=== PATIENT | male | born 1955 | race Caucasian/White ===

== ENCOUNTER 2021-09-18 09:15 | Inpatient (IN) | payer OTHER ==
[2021-09-18 10:06] LABS: #Monocytes 0.6 10x3/uL (0.0-1.1); #Neutrophils 7.9 10x3/uL (1.5-8.4); %Basophils 0.2 % (0.0-2.0); %Eosinophils 0.3 % (0.0-6.0); %Lymphocytes 10.6 % (18.0-47.0); %Monocytes 6.3 % (0.0-10.0); %Neutrophils 82.4 % (40.0-75.0); Hemoglobin 12.9 g/dL (13.5-17.5); Mean Corpuscular HGB CONC 32.5 g/dL (32.0-36.0); Mean Corpuscular Hemoglobin 32.8 pg (27.0-33.0); Mean Platelet Volume 10.7 fl (7.4-10.4); Platelet Count 191 10x3/uL (150-450); RBC Distribution Width 13.8 % (11.5-14.5); Red Blood Cell (RBC) Count 3.93 10x6/uL (4.32-5.72); White Blood Cell (WBC) Count 9.6 10x3/uL (3.5-10.5)
[2021-09-18] MEDS ORDERED: Morphine 4 MG/ML VIAL ONE ×2 (10:07→12:56)
[2021-09-18 10:22] LABS: ALT (SGPT) 12 U/L (8-55); AST (SGOT) 22 U/L (5-34); Albumin 4.6 g/dL (3.4-4.8); Alkaline Phosphatase 92 U/L (40-110); Anion Gap 14 mmol/L (10-20); BUN (Urea Nitrogen) 19 mg/dL (8.4-25.7); Bilirubin, Total 0.9 mg/dL (0.2-1.2); Calc. Creatinine Clearance 0 mL/min (70-130); Calcium 9.5 mg/dL (7.8-10.44); Carbon Dioxide 19 mmol/L (23-31); Chloride 110 mmol/L (98-107); Globulin 3.1 g/dL (2.4-3.5); Glucose 104 mg/dL (80-115); Potassium 5.1 mmol/L (3.5-5.1); Protein, Total 7.7 g/dL (5.8-8.1); Sodium 138 mmol/L (136-145)
[2021-09-18 10:40] LABS: CKMB 3.5 ng/mL (0-6.6)
[2021-09-18 11:50] LABS: SARS-CoV-2 NAA Rapid Test Not Detected (NotDetected)
[2021-09-18 16:29] LABS: Prothrombin Time Greater than 90.0 sec (9.5-12.1)
[2021-09-18 16:40] LABS: CKMB 3.4 ng/mL (0-6.6)
[2021-09-18] MEDS ORDERED: Warfarin Sodium 7.5 MG TAB PO SCH (17:00)
[2021-09-18 18:06] LABS: Prothrombin Time Greater than 90.0 sec (9.5-12.1)
[2021-09-18] MEDS: Morphine 4 MG/ML VIAL SLOW IVP PRN ×2 (18:36→22:01)
[2021-09-18] MEDS: Phytonadione 10 MG/ML AMP SC SCH ×2 (18:43→18:52)
[2021-09-18] MEDS: Nitroglycerin 0.4 MG TAB (25 Tab Bottle) SL PRN ×2 (21:40→21:47)
[2021-09-18] MEDS: Atorvastatin Calcium 40 MG TAB PO SCH (22:01)
[2021-09-18] MEDS ORDERED: Metoprolol Tartrate 5 MG/5 ML VIAL IVP SCH (22:15)
[2021-09-18] MEDS ORDERED: Metoprolol Tartrate 25 MG TAB PO SCH (22:45)
[2021-09-19] MEDS: Nitroglycerin 0.4 MG TAB (25 Tab Bottle) SL PRN ×3 (03:56→11:13)
[2021-09-19] MEDS: Ondansetron PF 4 MG/2 ML Vial IVP PRN ×2 (04:32→20:16)
[2021-09-19 04:54] LABS: #Eosinphils 0.1 10x3/uL (0.0-0.5); #Monocytes 0.6 10x3/uL (0.0-1.1); #Neutrophils 5.2 10x3/uL (1.5-8.4); %Basophils 0.3 % (0.0-2.0); %Eosinophils 1.4 % (0.0-6.0); %Lymphocytes 15.9 % (18.0-47.0); %Monocytes 8.5 % (0.0-10.0); %Neutrophils 73.3 % (40.0-75.0); Hemoglobin 11.1 g/dL (13.5-17.5); Mean Corpuscular HGB CONC 32.2 g/dL (32.0-36.0); Mean Corpuscular Hemoglobin 32.6 pg (27.0-33.0); Mean Corpuscular Volume 101.5 fl (81.2-95.1); Mean Platelet Volume 10.9 fl (7.4-10.4); Platelet Count 148 10x3/uL (150-450); White Blood Cell (WBC) Count 7.1 10x3/uL (3.5-10.5)
[2021-09-19 05:19] LABS: INR-International Normal Ratio 3.3; PTT 50.1 sec (22.0-33.0); Prothrombin Time 34.5 sec (9.5-12.1)
[2021-09-19 05:25] LABS: Anion Gap 15 mmol/L (10-20); BUN (Urea Nitrogen) 22 mg/dL (8.4-25.7); Calc. Creatinine Clearance 67 mL/min (70-130); Calcium 9.2 mg/dL (7.8-10.44); Carbon Dioxide 21 mmol/L (23-31); Cardiac Risk 3.1 (Less than 4.5); Chloride 108 mmol/L (98-107); Cholesterol 94 mg/dl (< 200 Desired); Glucose 103 mg/dL (80-115); HDL Cholesterol 30 mg/dL (>60 Neg Risk); LDL Cholesterol, Calculated 31 mg/dL; Magnesium 1.8 mg/dL (1.6-2.6); Potassium 4.5 mmol/L (3.5-5.1); Sodium 139 mmol/L (136-145); Triglycerides 163 mg/dL (Less than 150)
[2021-09-19] MEDS: Morphine 4 MG/ML VIAL SLOW IVP PRN ×3 (05:32→23:55)
[2021-09-19 05:38] LABS: CKMB 3.3 ng/mL (0-6.6)
[2021-09-19] MEDS: Aspirin 81 mg Enteric Coated Tablet PO SCH (08:30)
[2021-09-19] MEDS: Folic Acid 1 MG TAB PO SCH (08:30)
[2021-09-19] MEDS: Lisinopril 2.5 MG TAB PO SCH (08:30)
[2021-09-19] MEDS: Metoprolol Tartrate 25 MG TAB PO SCH ×2 (08:30→20:16)
[2021-09-19] MEDS ORDERED: Aspirin Chewable 81 MG TAB PO SCH (09:00)
[2021-09-19 12:21] LABS: Hemoglobin A1c 5.7 % (4.0-6.0)
[2021-09-19] MEDS ORDERED: Magnesium Sulfate 2 GM in Sodium Chloride 0.9% 100 ML IVPB SCH (14:00)
[2021-09-19] MEDS ORDERED: Magnesium 2 GM/50 ML(in water) 2 GM in Premix Bag 1 BAG IVPB SCH (16:00)
[2021-09-19] MEDS: Atorvastatin Calcium 40 MG TAB PO SCH (20:15)
[2021-09-19] MEDS: ALPRAZolam 0.25 MG TAB PO PRN (20:16)
[2021-09-20 06:12] LABS: #Eosinphils 0.2 10x3/uL (0.0-0.5); #Monocytes 0.8 10x3/uL (0.0-1.1); #Neutrophils 4.8 10x3/uL (1.5-8.4); %Basophils 0.4 % (0.0-2.0); %Lymphocytes 18.3 % (18.0-47.0); %Monocytes 10.7 % (0.0-10.0); %Neutrophils 67.2 % (40.0-75.0); Mean Corpuscular HGB CONC 32.7 g/dL (32.0-36.0); Mean Corpuscular Hemoglobin 32.9 pg (27.0-33.0); Mean Corpuscular Volume 100.6 fl (81.2-95.1); Mean Platelet Volume 10.6 fl (7.4-10.4); Platelet Count 155 10x3/uL (150-450); RBC Distribution Width 13.9 % (11.5-14.5); Red Blood Cell (RBC) Count 3.34 10x6/uL (4.32-5.72); White Blood Cell (WBC) Count 7.1 10x3/uL (3.5-10.5)
[2021-09-20 06:28] LABS: INR-International Normal Ratio 1.6; Prothrombin Time 17.7 sec (9.5-12.1)
[2021-09-20 06:52] LABS: Anion Gap 14 mmol/L (10-20); BUN (Urea Nitrogen) 31 mg/dL (8.4-25.7); Calc. Creatinine Clearance 59 mL/min (70-130); Calcium 8.9 mg/dL (7.8-10.44); Carbon Dioxide 20 mmol/L (23-31); Chloride 111 mmol/L (98-107); Glucose 132 mg/dL (80-115); Potassium 4.6 mmol/L (3.5-5.1); Sodium 140 mmol/L (136-145)
[2021-09-20] MEDS: Lisinopril 2.5 MG TAB PO SCH (10:36)
[2021-09-20] MEDS: Metoprolol Tartrate 25 MG TAB PO SCH ×2 (10:36→21:14)
[2021-09-20] MEDS: Aspirin 81 mg Enteric Coated Tablet PO SCH (10:36)
[2021-09-20] MEDS: Folic Acid 1 MG TAB PO SCH (10:37)
[2021-09-20] MEDS ORDERED: Iopamidol 300 61% 100 ML VIAL FS ONE (10:50)
[2021-09-20] MEDS ORDERED: Lidocaine 1% (PF) 30 ML VIAL ONE (12:13)
[2021-09-20] MEDS ORDERED: Heparin 10,000 UNITS/ 10 ML VIAL ONE (12:14)
[2021-09-20] MEDS ORDERED: Adenosine 6 MG/2 ML VIAL ONE (12:14)
[2021-09-20] MEDS ORDERED: Nitroglycerin 50 MG/250 ML BOT 250 ML ONE (12:14)
[2021-09-20] MEDS ORDERED: Sodium Chloride 0.9% 1,000 ML ONE (12:15)
[2021-09-20] MEDS ORDERED: Fentanyl 100 MCG/2 ML VIAL ONE ×2 (12:52→14:29)
[2021-09-20] MEDS ORDERED: Midazolam HCl 2 mg/2 ml Vial ONE ×2 (12:54→13:44)
[2021-09-20] MEDS ORDERED: niCARdipine 25 MG/10 ML VIAL ONE (13:37)
[2021-09-20] MEDS ORDERED: Ondansetron PF 4 MG/2 ML Vial ONE (14:20)
[2021-09-20] MEDS ORDERED: Clopidogrel Bisulfate 300 MG TAB ONE (14:20)
[2021-09-20] MEDS ORDERED: Sodium Chloride 0.9% 1,000 ML IV SCH (14:30)
[2021-09-20] MEDS: Acetaminophen 325 MG TAB PO PRN ×2 (15:53→21:12)
[2021-09-20] MEDS ORDERED: Warfarin Sodium 2.5 MG TAB PO SCH (17:00)
[2021-09-20] MEDS: Atorvastatin Calcium 40 MG TAB PO SCH (21:12)
[2021-09-20] MEDS: ALPRAZolam 0.25 MG TAB PO PRN (21:14)
[2021-09-21] MEDS: Acetaminophen 325 MG TAB PO PRN (02:48)
[2021-09-21 05:20] LABS: #Eosinphils 0.2 10x3/uL (0.0-0.5); #Monocytes 0.6 10x3/uL (0.0-1.1); #Neutrophils 4.4 10x3/uL (1.5-8.4); %Basophils 0.5 % (0.0-2.0); %Eosinophils 2.6 % (0.0-6.0); %Lymphocytes 18.6 % (18.0-47.0); %Monocytes 9.8 % (0.0-10.0); Hemoglobin 10.7 g/dL (13.5-17.5); Mean Corpuscular HGB CONC 32.7 g/dL (32.0-36.0); Mean Corpuscular Hemoglobin 33.1 pg (27.0-33.0); Mean Corpuscular Volume 101.2 fl (81.2-95.1); Mean Platelet Volume 11.2 fl (7.4-10.4); Platelet Count 173 10x3/uL (150-450); RBC Distribution Width 14.1 % (11.5-14.5); Red Blood Cell (RBC) Count 3.23 10x6/uL (4.32-5.72); White Blood Cell (WBC) Count 6.5 10x3/uL (3.5-10.5)
[2021-09-21 05:22] LABS: INR-International Normal Ratio 1.3; Prothrombin Time 13.7 sec (9.5-12.1)
[2021-09-21 05:30] LABS: ALT (SGPT) 15 U/L (8-55); AST (SGOT) 16 U/L (5-34); Albumin 3.8 g/dL (3.4-4.8); Alkaline Phosphatase 83 U/L (40-110); Anion Gap 12 mmol/L (10-20); BUN (Urea Nitrogen) 31 mg/dL (8.4-25.7); Bilirubin, Total 0.5 mg/dL (0.2-1.2); Calc. Creatinine Clearance 64 mL/min (70-130); Carbon Dioxide 19 mmol/L (23-31); Chloride 113 mmol/L (98-107); Globulin 2.8 g/dL (2.4-3.5); Glucose 151 mg/dL (80-115); Potassium 4.4 mmol/L (3.5-5.1); Protein, Total 6.6 g/dL (5.8-8.1); Sodium 140 mmol/L (136-145)
[2021-09-21] MEDS: Folic Acid 1 MG TAB PO SCH (08:56)
[2021-09-21] MEDS: Aspirin 81 mg Enteric Coated Tablet PO SCH (08:56)
[2021-09-21] MEDS: Clopidogrel Bisulfate 75 MG TAB PO SCH (08:56)
[2021-09-21] MEDS: Metoprolol Tartrate 25 MG TAB PO SCH ×2 (08:57→20:49)
[2021-09-21] MEDS: Lisinopril 2.5 MG TAB PO SCH (08:57)
[2021-09-21] MEDS ORDERED: Warfarin Sodium 5 MG TAB PO SCH ×2 (09:30→17:00)
[2021-09-21] MEDS: Nitroglycerin 0.4 MG TAB (25 Tab Bottle) SL PRN ×3 (10:02→10:47)
[2021-09-21] MEDS: Ondansetron PF 4 MG/2 ML Vial IVP PRN (10:32)
[2021-09-21] MEDS: Morphine 4 MG/ML VIAL SLOW IVP PRN ×2 (11:08→19:30)
[2021-09-21] MEDS: Atorvastatin Calcium 40 MG TAB PO SCH (20:49)
[2021-09-21] MEDS: ALPRAZolam 0.25 MG TAB PO PRN (20:49)
[2021-09-22] MEDS: Morphine 4 MG/ML VIAL SLOW IVP PRN (01:06)
[2021-09-22 05:21] LABS: INR-International Normal Ratio 1.2
[2021-09-22] MEDS: Lisinopril 2.5 MG TAB PO SCH (09:45)
[2021-09-22] MEDS: Clopidogrel Bisulfate 75 MG TAB PO SCH (09:45)
[2021-09-22] MEDS: Metoprolol Tartrate 25 MG TAB PO SCH ×2 (09:45→21:48)
[2021-09-22] MEDS: Folic Acid 1 MG TAB PO SCH (09:45)
[2021-09-22] MEDS: Aspirin 81 mg Enteric Coated Tablet PO SCH (09:45)
[2021-09-22] MEDS: Acetaminophen 325 MG TAB PO PRN (09:50)
[2021-09-22] MEDS: Ondansetron PF 4 MG/2 ML Vial IVP PRN (16:43)
[2021-09-22] MEDS: Warfarin Sodium 5 MG TAB PO SCH (16:43)
[2021-09-22] MEDS: Atorvastatin Calcium 40 MG TAB PO SCH (21:48)
[2021-09-22] MEDS: ALPRAZolam 0.25 MG TAB PO PRN (21:48)
[2021-09-23] MEDS: Morphine 4 MG/ML VIAL SLOW IVP PRN ×2 (00:04→16:59)
[2021-09-23 05:09] LABS: INR-International Normal Ratio 1.3
[2021-09-23 05:20] LABS: #Eosinphils 0.3 10x3/uL (0.0-0.5); #Monocytes 0.6 10x3/uL (0.0-1.1); #Neutrophils 4.1 10x3/uL (1.5-8.4); %Basophils 0.6 % (0.0-2.0); %Eosinophils 5.1 % (0.0-6.0); %Lymphocytes 23.2 % (18.0-47.0); %Monocytes 9.2 % (0.0-10.0); %Neutrophils 61.4 % (40.0-75.0); Hemoglobin 10.7 g/dL (13.5-17.5); Mean Corpuscular HGB CONC 33.4 g/dL (32.0-36.0); Mean Corpuscular Hemoglobin 33.3 pg (27.0-33.0); Mean Corpuscular Volume 99.7 fl (81.2-95.1); Mean Platelet Volume 10.9 fl (7.4-10.4); Platelet Count 192 10x3/uL (150-450); RBC Distribution Width 14.3 % (11.5-14.5); Red Blood Cell (RBC) Count 3.21 10x6/uL (4.32-5.72); White Blood Cell (WBC) Count 6.7 10x3/uL (3.5-10.5)
[2021-09-23] MEDS: Lisinopril 2.5 MG TAB PO SCH (08:33)
[2021-09-23] MEDS: Clopidogrel Bisulfate 75 MG TAB PO SCH (08:33)
[2021-09-23] MEDS: Folic Acid 1 MG TAB PO SCH (08:33)
[2021-09-23] MEDS: Metoprolol Tartrate 25 MG TAB PO SCH (08:33)
[2021-09-23] MEDS: Aspirin 81 mg Enteric Coated Tablet PO SCH (08:33)
[2021-09-23] MEDS ORDERED: Metoprolol Tartrate 25 MG TAB PO SCH ×2 (09:00)
[2021-09-23 09:38] LABS: Anion Gap 12 mmol/L (10-20); BUN (Urea Nitrogen) 30 mg/dL (8.4-25.7); Calc. Creatinine Clearance 57 mL/min (70-130); Calcium 9.4 mg/dL (7.8-10.44); Carbon Dioxide 23 mmol/L (23-31); Chloride 108 mmol/L (98-107); Glucose 135 mg/dL (80-115); Magnesium 2.1 mg/dL (1.6-2.6); Potassium 4.7 mmol/L (3.5-5.1); Sodium 138 mmol/L (136-145)
[2021-09-23] MEDS: Acetaminophen 325 MG TAB PO PRN ×2 (14:06→23:30)
[2021-09-23] MEDS: Nitroglycerin 0.4 MG TAB (25 Tab Bottle) SL PRN ×3 (14:50→15:05)
[2021-09-23] MEDS: Warfarin Sodium 5 MG TAB PO SCH (16:59)
[2021-09-23] MEDS: Ondansetron PF 4 MG/2 ML Vial IVP PRN (17:00)
[2021-09-23] MEDS: Atorvastatin Calcium 40 MG TAB PO SCH (21:05)
[2021-09-23] MEDS: Metoprolol Tartrate 50 MG TAB PO SCH (21:05)
[2021-09-23] MEDS: ALPRAZolam 0.25 MG TAB PO PRN (21:13)
[2021-09-24] MEDS: Morphine 4 MG/ML VIAL SLOW IVP PRN ×2 (00:27→05:00)
[2021-09-24] MEDS: Ondansetron PF 4 MG/2 ML Vial IVP PRN (00:28)
[2021-09-24 05:06] LABS: INR-International Normal Ratio 1.6; Prothrombin Time 17.3 sec (9.5-12.1)
[2021-09-24] MEDS: Clopidogrel Bisulfate 75 MG TAB PO SCH (08:46)
[2021-09-24] MEDS: Lisinopril 2.5 MG TAB PO SCH (08:46)
[2021-09-24] MEDS: Metoprolol Tartrate 50 MG TAB PO SCH ×2 (08:46→10:50)
[2021-09-24] MEDS: Folic Acid 1 MG TAB PO SCH (08:47)
[2021-09-24] MEDS: Warfarin Sodium 5 MG TAB PO SCH (18:25)
[2021-09-24] MEDS: Metoprolol Tartrate 25 MG TAB PO SCH (21:08)
[2021-09-24] MEDS: Atorvastatin Calcium 40 MG TAB PO SCH (21:08)
[2021-09-24] MEDS: ALPRAZolam 0.25 MG TAB PO PRN (21:08)
[2021-09-25] MEDS: Nitroglycerin 0.4 MG TAB (25 Tab Bottle) SL PRN (02:48)
[2021-09-25] MEDS: Ondansetron PF 4 MG/2 ML Vial IVP PRN (02:59)
[2021-09-25] MEDS: Morphine 4 MG/ML VIAL SLOW IVP PRN (03:10)
[2021-09-25 05:35] LABS: INR-International Normal Ratio 2.4; Prothrombin Time 24.4 sec (9.5-12.1)
[2021-09-25] MEDS: Clopidogrel Bisulfate 75 MG TAB PO SCH (09:12)
[2021-09-25] MEDS: Folic Acid 1 MG TAB PO SCH (09:12)
[2021-09-25] MEDS: Lisinopril 2.5 MG TAB PO SCH (09:12)
[2021-09-25] MEDS: Metoprolol Tartrate 25 MG TAB PO SCH (09:12)
[2021-09-25 12:53] VITALS: BP 136/74; TEMP 98.8
[2021-09-25] MEDS ORDERED: Warfarin Sodium 3 MG TAB PO SCH (17:00)
== END 2021-09-25 18:12 | disposition home or self-care (01) | DRG 246 ==
LOC: CSHERS 09:15 → EEVIPCON 09:15 → CSHTELE 14:47 → OBSVTOIN 09-19 17:06
PROVIDERS: ADMIT Family Medicine; ATTEND Internal Medicine
PROC: 027034Z Dilation of Coronary Artery, One Artery with Drug-eluting Intraluminal Device, Percutaneous Approach (ICD-10-PCS; principal; 2021-09-20)
PROC: 4A023N7 Measurement of Cardiac Sampling and Pressure, Left Heart, Percutaneous Approach (ICD-10-PCS; 2021-09-20)
PROC: B2111ZZ Fluoroscopy of Multiple Coronary Arteries using Low Osmolar Contrast (ICD-10-PCS; 2021-09-20)
PROC: B2151ZZ Fluoroscopy of Left Heart using Low Osmolar Contrast (ICD-10-PCS; 2021-09-20)
PROC: B2121ZZ Fluoroscopy of Single Coronary Artery Bypass Graft using Low Osmolar Contrast (ICD-10-PCS; 2021-09-20)
PROC: B241ZZ3 Ultrasonography of Multiple Coronary Arteries, Intravascular (ICD-10-PCS; 2021-09-20)
DX: I21.4 Non-ST elevation (NSTEMI) myocardial infarction (principal); I50.43 Acute on chronic combined systolic (congestive) and diastolic (congestive) heart failure; I13.0 Hypertensive heart and chronic kidney disease with heart failure and stage 1 through stage 4 chronic kidney disease, or unspecified chronic kidney disease; I25.10 Atherosclerotic heart disease of native coronary artery without angina pectoris; S09.90XA Unspecified injury of head, initial encounter; Z20.822 Contact with and (suspected) exposure to COVID-19; W19.XXXA Unspecified fall, initial encounter; M47.812 Spondylosis without myelopathy or radiculopathy, cervical region; N18.30 Chronic kidney disease, stage 3 unspecified; E78.5 Hyperlipidemia, unspecified; R53.81 Other malaise; R00.8 Other abnormalities of heart beat; F43.10 Post-traumatic stress disorder, unspecified; Z86.711 Personal history of pulmonary embolism; Z95.1 Presence of aortocoronary bypass graft; Z99.3 Dependence on wheelchair; Z79.01 Long term (current) use of anticoagulants; Z86.73 Personal history of transient ischemic attack (TIA), and cerebral infarction without residual deficits
CPT/HCPCS: 36415; 36416; 36430; 70450; 71045; 80048; 80053; 80061; 82553; 83036; 83735; 84443; 84484; 85025; 85610; 85730; 86850; 86900; 86901; 92937; 92978; 93005; 93010; 93306; 93459; 93923; 94760; 96372; 96374; 96375; 96376; 99152; 99153; C1725; C1753; C1760; C1769; C1874; C1887; G0378; J0153; J1644; J2001; J2250; J2270; J2405; J3010; J3430; J3475; J7050; P9059; Q9967; U0002